=== PATIENT | male | born 1940 | race Caucasian/White ===

== ENCOUNTER 2017-04-09 19:39 | Inpatient (IN) | payer OTHER, MEDICARE ==
[~2017-04-09] VITALS: Ht 162.6 cm; Wt 82.5 kg
[2017-04-09 20:22] VITALS: BP 131/63; PULSE 81; RESP 16; TEMP 99.3; O2SAT 99
[2017-04-09] MEDS ORDERED: SODIUM CHLOR 0.9% 1000 ML INJ 1,000 ML IV SCH (21:11)
[2017-04-09] MEDS ORDERED: PANTOPRAZOLE INJ 80 MG in SODIUM CHLORIDE 0.9% INJ 35 ML IV ONE (21:11)
[2017-04-09] MEDS ORDERED: SODIUM CHLORIDE 0.9% FLUSH 10 ML FLUSH IVF PRN (21:15)
[2017-04-09] MEDS ORDERED: PANT40TA3 PO (21:16)
[2017-04-09] MEDS ORDERED: AMLO10 PO (21:16)
[2017-04-09] MEDS ORDERED: ATOR20TA15 PO (21:16)
[2017-04-09] MEDS ORDERED: HYDR-3516 PO (21:17)
[2017-04-09 21:29] VITALS: O2SAT 93
--- NOTE | 2017-04-09 21:39 | PD ---
HPI . Dizziness Chief Complaint: Dizziness Time Seen by Provider: 21:07 Travel History International Travel<30 days: No Contact w/Intl Traveler<30days: No Traveled to known affect area: No History of Present Illness HPI This patient presents with a chief complaint of dizziness. Onset was about a week ago. Dizziness has been persistent. He is unable to qualify the dizziness. He is also unable to tell me whether or not anything makes it worse or better. He states that the dizziness was preceded by a lower GI bleed. He states that the bleeding stopped and then the dizziness started. He is also complaining with lower extremity edema. He states that he has never had that before. He reports no history of liver disease. [facility] Social History Tobacco Use: No Allergies-Medications (Allergen,Severity, Reaction): Coded Allergies: No Known Allergies (Unverified , 04/09/17) Reported Meds & Prescriptions Reported Meds & Active Scripts Active Reported Hydrocodone-Acetaminophen 5-325 mg Tab 1 Tab PO Q6H PRN Pantoprazole (Pantoprazole Sodium) 40 Mg Tab 40 Mg PO DAILY Norvasc (Amlodipine Besylate) 10 Mg Tab 10 Mg PO DAILY Atorvastatin (Atorvastatin Calcium) 20 Mg Tab 20 Mg PO HS Review of Systems Except as stated in HPI: all other systems reviewed are Neg General / Constitutional: No: Fever, Chills Eyes: No: Blurred Vision HENT: Positive: Lightheadedness Cardiovascular: No: Chest Pain or Discomfort Respiratory: No: Shortness of Breath Gastrointestinal: Positive: Hematochezia, No: Nausea, Vomiting, Diarrhea, Abdominal Pain Genitourinary: No: Urgency, Frequency, Dysuria Neurologic: Positive: Dizziness Physical Exam Narrative GENERAL: Awake and alert and in no acute distress. SKIN: warm/dry. Pale. HEAD: Normocephalic. Atraumatic. EYES: Pupils equal and round. Mild scleral icterus. No injection or drainage. ENT: No nasal bleeding or discharge. Mucous membranes pink and moist. NECK: Trachea midline. Full range of motion without pain.. CARDIOVASCULAR: Regular rate and rhythm. RESPIRATORY: No accessory muscle use. Clear to auscultation. Breath sounds equal bilaterally. GASTROINTESTINAL: Abdomen soft. Nontender. No hepatomegaly. No [place]. No ascites. Bowel sounds present. Nondistended. RECTAL: no mass. brown stool. MUSCULOSKELETAL: No obvious deformities. Nonpitting edema. NEUROLOGICAL: Awake and alert. No obvious cranial nerve deficits. Motor grossly within normal limits. Normal speech. PSYCHIATRIC: Appropriate mood and affect; insight and judgment normal. Data Data Last Documented VS Vital Signs Date Time Temp Pulse Resp B/P (MAP) Pulse Ox O2 Delivery O2 Flow Rate FiO2 04/09/17 21:45 86 20 140/66 (90) 95 Room Air 04/09/17 20:22 99.3 Orders Orders Complete Blood Count With Diff (04/09/17 21:11) Comprehensive Metabolic Panel (04/09/17 21:11) Prothrombin Time / Inr (Pt) (04/09/17 21:11) Act Partial Throm Time (Ptt) (04/09/17 21:11) Type And Screen (04/09/17:11) Ecg Monitoring (04/09/17:11) Iv Access Insert/Monitor (04/09/17 21:11) Oximetry (04/09/17 21:11) Sodium Chlor 0.9% 1000 Ml Inj (Ns 1000 M (04/09/17 21:11) Sodium Chloride 0.9% Flush (Ns Flush) (04/09/17 21:15) Sodium Chloride 0.9... W/Pantoprazole In (04/09/17 21:11) Sodium Chloride 0.9... W/Pantoprazole In (04/09/17 21:11) Red Blood Cells (Rbc) (04/09/17 21:56) Blood Product Administration (04/09/17 21:56) Sodium Chlor 0.9% 250 Ml Inj (Ns 250 Ml (04/09/17 22:00) Admit Order (Ed Use Only) (04/09/17 22:45) Labs Laboratory Tests Test 04/09/17 21:29 White Blood Count 7.5 TH/MM3 Red Blood Count 2.44 MIL/MM3 Hemoglobin 5.6 GM/DL Hematocrit 17.8 % Mean Corpuscular Volume 73.0 FL Mean Corpuscular Hemoglobin 23.0 PG Mean Corpuscular Hemoglobin Concent 31.6 % Red Cell Distribution Width 16.8 % Platelet Count 479 TH/MM3 Mean Platelet Volume 7.5 FL Neutrophils (%) (Auto) 50.6 % Lymphocytes (%) (Auto) 27.8 % Monocytes (%) (Auto) 13.3 % Eosinophils (%) (Auto) 7.6 % Basophils (%) (Auto) 0.7 % Neutrophils # (Auto) 3.7 TH/MM3 Lymphocytes # (Auto) 2.1 TH/MM3 Monocytes # (Auto) 1.0 TH/MM3 Eosinophils # (Auto) 0.6 TH/MM3 Basophils # (Auto) 0.1 TH/MM3 CBC Comment AUTO DIFF Prothrombin Time 11.1 SEC Prothromb Time International Ratio 1.0 RATIO Activated Partial Thromboplast Time 23.5 SEC Blood Urea Nitrogen 19 MG/DL Creatinine 1.20 MG/DL Random Glucose 106 MG/DL Total Protein 7.1 GM/DL Albumin 3.4 GM/DL Calcium Level 7.9 MG/DL Alkaline Phosphatase 68 U/L Aspartate Amino Transf (AST/SGOT) 16 U/L Alanine Aminotransferase (ALT/SGPT) 21 U/L Total Bilirubin 0.3 MG/DL Sodium Level 137 MEQ/L Potassium Level 3.4 MEQ/L Chloride Level 104 MEQ/L Carbon Dioxide Level 25.9 MEQ/L Anion Gap 7 MEQ/L Estimat Glomerular Filtration Rate 59 ML/MIN [facility] Medical Decision Making Medical Screen Exam Complete: Yes Emergency Medical Condition: Yes Differential Diagnosis Differential diagnosis of weakness includes but is not limited to infection, CVA , electrolyte disturbance, renal failure, hypoglycemia, UTI, ACS, acute blood loss Narrative Course This patient presents complaining of weakness and dizziness. He reports a preceding lower GI bleed. On exam, he is pale and his sclera are icteric. Stool is Hemoccult negative. Hgb 5.6. Remains hemodynamically stable. 3 units of PRBCs have been ordered for transfusion with an additional unit on standby. [facility] has been consulted for admission. CBC & BMP Diagram 04/09/17 21:29 Total Protein 7.1, Albumin 3.4, Calcium Level 7.9 L, Alkaline Phosphatase 68, Aspartate Amino Transf (AST/SGOT) 16, Alanine Aminotransferase (ALT/SGPT) 21, Total Bilirubin 0.3 Surprisingly, his bilirubin and other liver function studies are normal. Coags are also normal. Critical Care Narrative Aggregate critical care time was 40 minutes. Time to perform other separately billable procedures was not included in the critical care time. My time did not include minutes spent treating any other patients simultaneously or on activities that did not directly contribute to the patient's treatment. The services I provided to this patient were to treat and/or prevent clinically significant deterioration due to dizziness, anemia I provided critical care services requiring my management, as noted below: Chart data review, documentation time, medication orders and management, vital sign assessments/reviewing monitor data, ordering and reviewing lab tests, ordering and interpreting/reviewing x-rays and diagnostic studies, care of the patient and discussion of the patient with the admitting physicians HemaPrompt Point of Care Internal Pos. & Neg. Controls: Passed Fecal Specimen Occult Blood: Negative Diagnosis Primary Impression: Dizziness Additional Impression: Anemia Qualified Codes: D64.9 - Anemia, unspecified Admitting Information Admitting Physician Requests: Admit Condition: Stable Donna Butler MD Apr 09, 2017 21:39
[2017-04-09 21:45] VITALS: BP 140/66; PULSE 86; RESP 20; O2SAT 95
[2017-04-09 21:47] LABS: AUTOMATED NEUTROPHIL # 3.7 TH/MM3 (1.8-7.7); BASOPHIL # 0.1 TH/MM3 (0-0.2); BASOPHIL % 0.7 % (0.0-2.0); EOSINOPHIL # 0.6 TH/MM3 (0-0.4); EOSINOPHIL % 7.6 % (0.0-4.0); LYMPH % 27.8 % (9.0-44.0); LYMPHOCYTE # 2.1 TH/MM3 (1.0-4.8); MEAN CORPUSCULAR HGB CONC 31.6 % (32.0-36.0); MONO % 13.3 % (0.0-8.0); NEUT % 50.6 % (16.0-70.0); PLATELET COUNT 479 TH/MM3 (150-450); RED BLOOD COUNT 2.44 MIL/MM3 (4.50-5.90); RED CELL DISTRIBUTION WIDTH 16.8 % (11.6-17.2); WHITE BLOOD COUNT 7.5 TH/MM3 (4.0-11.0)
[2017-04-09 21:52] LABS: HEMO FLAGS AUTO DIFF
[2017-04-09 21:55] LABS: HEMATOCRIT 17.8 % (39.0-51.0)
[2017-04-09] MEDS ORDERED: SODIUM CHLOR 0.9% 250 ML INJ 250 ML IV ONE (22:00)
[2017-04-09 22:03] LABS: CHLORIDE 104 MEQ/L (98-107); POTASSIUM 3.4 MEQ/L (3.5-5.1); SODIUM (NA) 137 MEQ/L (136-145)
[2017-04-09 22:07] LABS: ANION GAP 7 MEQ/L (5-15); BICARBONATE 25.9 MEQ/L (21.0-32.0); BLOOD UREA NITROGEN 19 MG/DL (7-18)
[2017-04-09 22:10] LABS: ALT (GPT) 21 U/L (12-78); APTT (PATIENT) 23.5 SEC (24.3-30.1); AST (GOT) 16 U/L (15-37); GLOMERULAR FILTRATION RATE 59 ML/MIN (>89); PROTHROMBIN TIME - PATIENT 11.1 SEC (9.8-11.6)
[2017-04-09] MEDS: PANTOPRAZOLE INJ 80 MG in SODIUM CHLORIDE 0.9% INJ 100 ML IV SCH (22:10)
[2017-04-09 22:12] LABS: TOTAL BILIRUBIN ADULT 0.3 MG/DL (0.2-1.0)
[2017-04-09 22:13] LABS: ALKALINE PHOSPHATASE 68 U/L (45-117)
[2017-04-09] MEDS ORDERED: SODIUM CHLORIDE 0.9% FLUSH 10 ML FLUSH IV FLUSH PRN (22:45)
[2017-04-09] MEDS ORDERED: NALOXONE HCL 0.4 MG/ML AMP IV PUSH PRN (22:45)
[2017-04-09 22:54] LABS: KERATOCYTES 1+ (NORMAL); OVALOCYTES 1+ (NORMAL)
[2017-04-09 22:55] LABS: PLATELET ESTIMATE SMEAR HIGH (NORMAL); PLATELET MORPHOLOGY NORMAL (NORMAL); SCAN/DIFF AUTO DIFF CONFIRMED
[2017-04-09 23:27] VITALS: BP 131/65; PULSE 88; RESP 20; O2SAT 95
[2017-04-10] VITALS (19 sets, daily range): BP systolic 127–154; BP diastolic 70–85; PULSE 84–99; RESP 18–27; TEMP 97.1–102.1; O2SAT 84–94
[2017-04-10] MEDS: SODIUM CHLORIDE 0.9% FLUSH 10 ML FLUSH IV FLUSH SCH ×2 (08:46→21:12)
[2017-04-10] MEDS ORDERED: DIATRIZOATE MEGLUM/DIATRIZOATE SOD 9 ML CUP PO ONE (09:00)
[2017-04-10] MEDS: PANTOPRAZOLE INJ 80 MG in SODIUM CHLORIDE 0.9% INJ 100 ML IV SCH ×2 (09:19→21:12)
[2017-04-10 09:26] LABS: AUTOMATED NEUTROPHIL # 6.3 TH/MM3 (1.8-7.7); BASOPHIL % 0.5 % (0.0-2.0); EOSINOPHIL # 0.1 TH/MM3 (0-0.4); EOSINOPHIL % 1.1 % (0.0-4.0); HEMATOCRIT 22.8 % (39.0-51.0); LYMPH % 10.8 % (9.0-44.0); LYMPHOCYTE # 0.8 TH/MM3 (1.0-4.8); MEAN CELL VOLUME 76.3 FL (80.0-100.0); MEAN CORPUSCULAR HEMOGLOBIN 24.7 PG (27.0-34.0); MEAN CORPUSCULAR HGB CONC 32.4 % (32.0-36.0); MONO % 8.1 % (0.0-8.0); NEUT % 79.5 % (16.0-70.0); PLATELET COUNT 426 TH/MM3 (150-450); RED BLOOD COUNT 2.98 MIL/MM3 (4.50-5.90); RED CELL DISTRIBUTION WIDTH 17.7 % (11.6-17.2); WHITE BLOOD COUNT 7.8 TH/MM3 (4.0-11.0)
[2017-04-10 09:29] LABS: HEMO FLAGS AUTO DIFF
[2017-04-10 09:56] LABS: CHLORIDE 106 MEQ/L (98-107); POTASSIUM 3.3 MEQ/L (3.5-5.1); SODIUM (NA) 139 MEQ/L (136-145)
[2017-04-10 09:58] LABS: ANION GAP 10 MEQ/L (5-15)
[2017-04-10 10:01] LABS: GLOMERULAR FILTRATION RATE 65 ML/MIN (>89)
[2017-04-10 10:03] LABS: TOTAL BILIRUBIN ADULT 0.8 MG/DL (0.2-1.0)
[2017-04-10 10:04] LABS: ALKALINE PHOSPHATASE 73 U/L (45-117)
[2017-04-10 10:08] LABS: ALT (GPT) 18 U/L (12-78)
[2017-04-10 10:11] LABS: AST (GOT) 14 U/L (15-37); BLOOD UREA NITROGEN 17 MG/DL (7-18)
[2017-04-10] MEDS ORDERED: FUROSEMIDE 20 MG/2 ML VIAL IV PUSH ONE (10:15)
[2017-04-10 10:46] LABS: KERATOCYTES 1+ (NORMAL); OVALOCYTES 1+ (NORMAL); SCAN/DIFF AUTO DIFF CONFIRMED; TARGET CELLS 2+ (NORMAL)
[2017-04-10 11:06] LABS: RETIC % 2.9 % (0.4-3.0)
[2017-04-10 11:11] LABS: REVIEW FLAG FINAL
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
[2017-04-10 11:47] LABS: FERRITIN 5 NG/ML (26-388); LDH SERUM 219 U/L (87-241); TRANSFERRIN IRON PROFILE 314 MG/DL (200-360)
[2017-04-10] MEDS ORDERED: PROPOFOL 200 MG/20 ML AMP IV ONE (14:51)
--- NOTE | 2017-04-10 14:57 | PD.PROCEDR ---
GI Procedure PROCEDURE PERFORMED EGD with biopsy INDICATION FOR PROCEDURE Severe anemia PROCEDURE: The procedure, risks and benefits were discussed with Mr. Vincent and informed consent was obtained. Anesthesia sedated him with Diprivan. He was placed in the left lateral decubitus position. EGD: The Pentax videoscope was introduced through the oropharynx and advanced to the second portion of the duodenum under direct visualization. Retroflexion was performed in the stomach biopsy from the antrum FINDINGS: Fl mild gastritis does not explain patient anemia Normal otherwise ESTIMATED BLOOD LOSS: None SPECIMENS REMOVED: Antrum COMPLICATIONS: None IMPRESSION: Minimal gastritis otherwise normal PLAN: Packed RBC as needed Colonoscopy in the morning Grace Jang MD Apr 10, 2017 14:57
[2017-04-10] MEDS ORDERED: DO NOT ADM ANY ANTICOAGULANT DRUGS PRN (15:00)
[2017-04-10] MEDS ORDERED: PEG (High)/E-LYTE SOLN 4000 ML BTL PO ONE (15:30)
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
--- NOTE | 2017-04-10 20:01 | RADRPT ---
EXAM DATE/TIME: 04/10/2017 19:35 CORRECTION Corrected on: April 10, 2017; [facility] COMPARISON: No previous studies available for comparison. INDICATIONS : Abdominal pain. ORAL CONTRAST: Prescribed oral contrast ingested. RADIATION DOSE: 22.03 CTDIvol (mGy) MEDICAL HISTORY : Hypertension. Cardiovascular disease SURGICAL HISTORY : Appendectomy. ENCOUNTER: Initial ACUITY: 1 day PAIN SCALE: 2/10 LOCATION: Abdomen. TECHNIQUE: Volumetric scanning of the abdomen and pelvis was performed. Using automated exposure control and ad justment of the mA and/or kV according to patient size, radiation dose was kept as low as reasonably achievable to obtain optimal diagnostic quality images. DICOM format image data is available electro nically for review and comparison. The lack of IV contrast limits the diagnosis for certain organ pa thology. FINDINGS: LOWER LUNGS: Bilateral small pleural effusions with some infiltrates in both lung bases. LIVER: Homogeneous density without lesion. There is no dilation of the biliary tree. No calcified gallston es. SPLEEN: Normal size without lesion. PANCREAS: Within normal limits. KIDNEYS: Normal in size and shape. There is no mass, stone, or hydronephrosis. ADRENAL GLANDS: Within normal limits. VASCULAR: There is no aortic aneurysm. BOWEL/MESENTERY: The stomach, small bowel, and colon demonstrate no acute abnormality. There is no free intraperitone al air or fluid. There is diverticulosis of the descending and sigmoid colon without inflammatory shadi nges. The appendix is unremarkable. No inflammatory changes. ABDOMINAL WALL: Within normal limits. RETROPERITONEUM: There is no lymphadenopathy. BLADDER: No wall thickening or mass. REPRODUCTIVE: Within normal limits. INGUINAL: There is no lymphadenopathy or hernia. MUSCULOSKELETAL: Within normal limits for patient age. CONCLUSION: 1. Bilateral pleural effusions with bibasilar infiltrates. 2. Diverticulosis of the descending and sigmoid colon without inflammatory changes. 3. No calcified renal stones or hydronephrosis. Billy Nguyen MD on April 10, 2017 at 19:58 Board Certified Radiologist. This report was verified electronically. Billy Nguyen MD on April 10, 2017 at 20:05 Board Certified Radiologist. This report was verified electronically.
[2017-04-10] MEDS: ACETAMINOPHEN 325 MG TAB PO PRN (23:00)
[2017-04-11] VITALS (10 sets, daily range): BP systolic 135–166; BP diastolic 62–90; PULSE 84–119; RESP 18–24; TEMP 97.8–102.1; O2SAT 88–98
[2017-04-11] MEDS: ACETAMINOPHEN 325 MG TAB PO PRN ×2 (00:43→20:54)
[2017-04-11] MEDS ORDERED: METOPROLOL TARTRATE 25 MG TAB PO PRN (03:15)
[2017-04-11] MEDS ORDERED: INSULIN HUMAN REGULAR 1,000 UNITS/10 ML VIAL SQ PRN (03:15)
[2017-04-11] MEDS ORDERED: LACTATED RINGER'S 1000 ML IV PRN (03:15)
[2017-04-11] MEDS ORDERED: CHLORHEXIDINE GLUCONATE 2 % 1 PACK (2 CLOTHS) TOPICAL PRN (03:15)
[2017-04-11] MEDS ORDERED: POVIDONE IODINE 5% (ANTISEPSIS KIT) 4 APPLICATIONS EACH NARE PRN (03:15)
[2017-04-11] MEDS: PANTOPRAZOLE INJ 80 MG in SODIUM CHLORIDE 0.9% INJ 100 ML IV SCH ×2 (05:41→15:00)
[2017-04-11 06:16] LABS: AUTOMATED NEUTROPHIL # 6.5 TH/MM3 (1.8-7.7); BASOPHIL % 0.5 % (0.0-2.0); EOSINOPHIL # 0.1 TH/MM3 (0-0.4); EOSINOPHIL % 0.9 % (0.0-4.0); LYMPH % 20.3 % (9.0-44.0); LYMPHOCYTE # 1.9 TH/MM3 (1.0-4.8); MEAN CELL VOLUME 75.6 FL (80.0-100.0); MEAN CORPUSCULAR HEMOGLOBIN 24.2 PG (27.0-34.0); MEAN CORPUSCULAR HGB CONC 32.1 % (32.0-36.0); MONO % 8.3 % (0.0-8.0); PLATELET COUNT 444 TH/MM3 (150-450); RED BLOOD COUNT 3.57 MIL/MM3 (4.50-5.90); RED CELL DISTRIBUTION WIDTH 18.5 % (11.6-17.2); WHITE BLOOD COUNT 9.3 TH/MM3 (4.0-11.0)
[2017-04-11 06:21] LABS: HEMO FLAGS AUTO DIFF
[2017-04-11 07:11] LABS: KERATOCYTES 1+ (NORMAL); OVALOCYTES 1+ (NORMAL); TARGET CELLS 1+ (NORMAL)
[2017-04-11 07:12] LABS: SCAN/DIFF AUTO DIFF CONFIRMED
[2017-04-11] MEDS ORDERED: PROPOFOL 200 MG/20 ML AMP IV ONE ×2 (07:20→07:57)
--- NOTE | 2017-04-11 07:36 | GIPROC ---
[facility] [address] [place] [address], [id number] COLONOSCOPY PROCEDURE REPORT EXAM DATE: 04/11/2017 PATIENT NAME: Jerry Vincent MR #: [id number] BIRTHDATE: 1940 ENDOSCOPIST: Loly Krueger MD ORDER #: [id number] BATTERY TESTER: Juan Davis and Mey Gibson STATUS: inpatient INDICATIONS: The patient is a 76 yr old male here for a colonoscopy due to ANEMIA , GI BLEEDING PROCEDURE PERFORMED: Colonoscopy with biopsy MEDICATIONS: None and Per Anesthesia. PREP QUALITY: good PREP TYPE:Other: ESTIMATED BLOOD LOSS: None CONSENT: The patient understands the risks and benefits of the procedure and understands that these risks include, but are not limited to: sedation, allergic reaction, infection, perforation and/or bleeding. Alternative means of evaluation and treatment include, among others: physical exam, x-rays, and/or surgical intervention. The patient elects to proceed with this endoscopic procedure. medical equipment was checked for proper function. Hand hygiene and appropriate measures for infection prevention was taken. After the risks, benefits and alternatives of the procedure were thoroughly explained, Informed consent was verified, confirmed and timeout was successfully executed by the treatment team. A digital exam revealed hemorrhoids The Pentax EC-[id number] endoscope was introduced through the anus and advanced to the cecum, which was identified by both the appendix and ileocecal valve. The instrument was then slowly withdrawn as the colon was fully examined. COLON FINDINGS: Diverticulosis sigmoid,descending intrnal hemorrhoids proctitis rectum-biopsy. Retroflexed views revealed internal hemorrhoids and Retroflexed views revealed medium internal hemorrhoids The scope was then completely withdrawn from the patient and the procedure terminated. PROCEDURE WITHDRAWAL TIME:6minutes ADVERSE EVENTS: There were no complications. IMPRESSIONS: 1. Diverticulosis sigmoid,descending intrnal hemorrhoids proctitis rectum-biopsy 2. Retroflexed views revealed internal hemorrhoids 3. Retroflexed views revealed medium internal hemorrhoids 4. Revealed hemorrhoids RECOMMENDATIONS: 1. Await biopsy results. Biopsy results will not be ready for 7-10 days. If you don't hear from us in two weeks, call our office for results. 2. Benefiber 2 tsp daily 3. High fiber diet 4. Avoid NSAIDS and Aspirin 5. Yearly rectal exams 6. Probiotics from any [employer] or health food store 7. Resume diet capsule endoscopy op ct abdomen/pelvis if not done yet if stable hb ok to dc home from [facility] in 2 weeks RECALL: Return 10 years Colonoscopy Loly Krueger MD eSigned: Loly Krueger MD 04/11/2017 7:36 AM cc: PATIENT NAME: Jerry Vincent MR#: [id number]
[2017-04-11] MEDS ORDERED: SUCCINYLCHOLINE CHLORIDE 200 MG/10 ML VIAL IV ONE (07:57)
[2017-04-11] MEDS: SODIUM CHLORIDE 0.9% FLUSH 10 ML FLUSH IV FLUSH SCH ×2 (08:58→20:58)
[2017-04-11] MEDS: POLYSACCHARIDE IRON COMPLEX 150 MG CAP PO SCH ×2 (10:41→20:54)
--- NOTE | 2017-04-11 12:11 | EKG ---
Date Performed: 04/10/2017 Time Performed: 20:49:02 PTAGE: 76 years EKG: Sinus rhythm NORMAL ECG NO PREVIOUS TRACING DOCTOR: Evelin Paulino Interpretating Date/Time 04/11/2017 12:09:20
[2017-04-11] MEDS ORDERED: RESP: ALBUTEROL 2.5 MG/IPRATROPIUM 0.5 MG NEB (SCH) NEB ONE (12:30)
--- NOTE | 2017-04-11 14:08 | RADRPT ---
EXAM DATE/TIME: 04/11/2017 12:30 [facility] COMPARISON: No previous studies available for comparison. INDICATIONS : Short of breath. MEDICAL HISTORY : Hypertension. Cardiovascular disease SURGICAL HISTORY : Appendectomy. ENCOUNTER: Subsequent ACUITY: 1 day PAIN SCORE: 0/10 LOCATION: Bilateral chest FINDINGS: Interstitial vascular prominence is identified throughout both lung vazquez. Fluid is noted in the int erlobar fissures. There are no consolidating infiltrates. Small bilateral effusions are identified. Heart is normal in size. CONCLUSION: 1. Interstitial vascular prominence and small bilateral effusions characteristic of pulmonary congest ion. 2. Underlying distal lung disease may be present as well. 3. No evidence of consolidating airspace disease. Chris Brewster MD on April 11, 2017 at 14:02 Board Certified Radiologist. This report was verified electronically.
[2017-04-11] MEDS ORDERED: POTASSIUM CHLORIDE 10 MEQ CONTROLLED RELEASE TAB PO ONE (15:30)
[2017-04-11] MEDS: METOLAZONE 5 MG TAB PO SCH (15:43)
[2017-04-11] MEDS: FUROSEMIDE 40 MG/4 ML VIAL IV PUSH SCH (15:43)
--- NOTE | 2017-04-11 16:56 | HHI.PR ---
Subjective Remarks Discussed with GI, stable for discharge from GI standpoint, patient has some gastritis and diverticulosis. Noted the patient to have been requiring oxygen, did desaturate in front of me to about 87% on room air, and failed home oxygen walk test as well. Patient himself is very eager to go home, says he feels good , no further bloody bowel movements or any other issues, he implies that he has chronic dyspnea that he just simply tolerates. Objective Vital Signs Date Time Temp Pulse Resp B/P (MAP) Pulse Ox O2 Delivery O2 Flow Rate FiO2 04/11/17 16:00 99.4 100 22 135/62 (86) 88 04/11/17 12:21 93 Nasal Cannula 2.00 04/11/17 12:16 2.00 04/11/17 12:00 97.8 86 18 139/80 (99) 95 04/11/17 09:36 Nasal Cannula 6.00 04/11/17 08:00 99.5 86 24 166/90 (115) 98 04/11/17 07:59 99.8 84 16 134/83 (100) 97 04/11/17 07:44 99.8 75 16 121/76 (91) 98 04/11/17 06:50 98.6 86 22 138/78 (98) 92 04/11/17 04:00 98.5 84 24 148/77 (100) 97 04/11/17 00:00 101.4 102 24 140/83 (102) 94 04/10/17 22:00 102.1 04/10/17 20:30 Nasal Cannula 6.00 Humidified 04/10/17 20:25 92 Nasal Cannula 4.00 04/10/17 20:00 101.3 99 27 148/78 (101) 94 I/O 04/10/17 04/10/17 04/10/17 04/11/17 04/11/17 04/11/17 07:00 15:00 23:00 07:00 15:00 23:00 Intake Total 670 ml 1560 ml 84 ml 85.2 ml 100 ml Output Total 950 ml 400 ml 925 ml Balance -280 ml 1560 ml -316 ml -839.8 ml 100 ml Intake Oral 0 ml 0 ml IV Total 250 ml 84 ml 85.2 ml 100 ml Packed Cells 400 ml 800 ml Blood Product IV Normal Saline Flush 20 ml 660 ml Other 100 ml Output Urine Total 950 ml 400 ml 925 ml # Voids 5 3 1 1 # Bowel Movements 1 3 2 Result Diagram: 04/11/1751404/11/17514 Objective Remarks Minimally labored breathing Ambulates well Breath sounds show bibasilar faint crackles with good air movement otherwise Abdomen soft, nontender, nondistended A/P Assessment and Plan Anemia, symptomatic with weakness, dizziness, shortness of breath stable h/h today, mild gastritis diverticulosis w/ hemorrhoids per GI procedures - . starting po protonix. avoiding NSAIDs. hypoxia - NEW problem - obtain chest x-ray which I independently reviewed and shows diffuse pulmonary edema. Discussed with patient, will start Lasix, obtain echocardiogram as well as BNP. Hypertension, hyperlipidemia Continue home medications DVT prevention Sequential compression devices, avoid chemical prophylaxis secondary to somatic anemia, history GI bleed Fever last night was not reported in nursing sign out this AM apparently. RN reported via thermometer of elevated temp of > 101 noted earlier this afternoon , however, rechecked with a diff thermometer within 5m in and temp was 99. Pt not having any s/s of infection. Will monitor w/o abx for now, temp checks q2hrs. Reza Bruner MD Apr 11, 2017 16:56
[2017-04-11] MEDS: LEVOFLOXACIN 750 MG PREMIX INJ 150 ML IV SCH (20:58)
[2017-04-12] VITALS (12 sets, daily range): BP systolic 122–150; BP diastolic 66–81; PULSE 80–92; RESP 16–24; TEMP 98.5–101.6; O2SAT 90–96
[2017-04-12 03:02] LABS: BLOOD, URINE TRACE (NEG); GLUCOSE,URINE NEG (NEG); KETONE, URINE NEG (NEG); NITRITE,URINE NEG (NEG)
[2017-04-12 03:07] LABS: RBC, URINE 0-2 /hpf (0-3); URINE COLOR STRAW (YELLW/STRAW); WBC, URINE 0-2 /hpf (0-5)
[2017-04-12 03:08] LABS: COMMENT (UR) CULT NOT INDICATED; CULTURE IF INDICATED CULT NOT INDICATED; SQUAMOUS EPITHELIAL CELL URINE 0-5 /hpf (0-5)
[2017-04-12 07:10] LABS: POTASSIUM 2.5 MEQ/L (3.5-5.1)
[2017-04-12 07:11] LABS: BICARBONATE 28.4 MEQ/L (21.0-32.0)
[2017-04-12] MEDS: METOLAZONE 5 MG TAB PO SCH (08:46)
[2017-04-12] MEDS: POLYSACCHARIDE IRON COMPLEX 150 MG CAP PO SCH ×2 (08:46→21:17)
[2017-04-12] MEDS: POTASSIUM CHLOR 20 MEQ PREMIX 100 ML IV SCH ×2 (08:46→16:30)
[2017-04-12] MEDS: POTASSIUM CHLORIDE 10 MEQ CONTROLLED RELEASE TAB PO SCH (08:47)
[2017-04-12] MEDS: FUROSEMIDE 40 MG/4 ML VIAL IV PUSH SCH (08:49)
[2017-04-12] MEDS: SODIUM CHLORIDE 0.9% FLUSH 10 ML FLUSH IV FLUSH SCH ×2 (08:50→21:17)
--- NOTE | 2017-04-12 11:34 | HHI.PR ---
Subjective Remarks Nursing confirms patient did indeed have true fevers last night, blood cultures were obtained and Levaquin was started. Patient has some gastritis and diverticulosis on EGD and colonoscopy. When asked the patient had any outside travel, he says no, denies any history of tuberculosis or working the or living in close quarters with anyone or any exposure to anyone with tuberculosis. Objective Vital Signs Date Time Temp Pulse Resp B/P (MAP) Pulse Ox O2 Delivery O2 Flow Rate FiO2 04/12/17 09:00 100.6 90 16 122/75 (91) 90 04/12/17 05:57 100.8 04/12/17 04:00 100.5 92 24 132/81 (98) 95 04/12/17 04:00 100.0 04/12/17 02:00 101.6 04/12/17 00:00 100.2 81 24 124/75 (91) 95 04/11/17 22:00 99.8 04/11/17 20:30 93 Nasal Cannula 2.00 04/11/17 20:00 Nasal Cannula 2.00 04/11/17 20:00 119 04/11/17 20:00 102.1 102 18 141/76 (97) 92 04/11/17 16:00 99.4 100 22 135/62 (86) 88 04/11/17 12:21 93 Nasal Cannula 2.00 04/11/17 12:16 2.00 04/11/17 12:00 97.8 86 18 139/80 (99) 95 I/O 04/11/17 04/11/17 04/11/17 04/12/17 04/12/17 04/12/17 07:00 15:00 23:00 07:00 15:00 23:00 Intake Total 85.2 ml 100 ml 730 ml 630 ml Output Total 925 ml 1900 ml 1550 ml 450 ml Balance -839.8 ml 100 ml -1170 ml -920 ml -450 ml Intake Oral 0 ml 580 ml 480 ml IV Total 85.2 ml 100 ml 150 ml 150 ml Output Urine Total 925 ml 1900 ml 1550 ml 450 ml # Voids 1 3 1 # Bowel Movements 2 0 0 Result Diagram: 04/11/1715 04/12/17 0510 Objective Remarks Minimally labored breathing Ambulates well Breath sounds show bibasilar faint crackles with good air movement otherwise Abdomen soft, nontender, nondistended A/P Assessment and Plan hypoxia - 2/2 pulmonary edema - clinically improving, continue diuresis. awaiting echo report. Fevers of unknown origin - new problem - blood cultures obtained last night, continue Levaquin, has been afebrile since. Patient denies any signs or symptoms of infection that would suggest a particular etiology. Anemia, symptomatic with weakness, dizziness, shortness of breath stable h/h today, mild gastritis diverticulosis w/ hemorrhoids per GI procedures - . starting po protonix. avoiding NSAIDs. Hypertension, hyperlipidemia Continue home medications DVT prevention Sequential compression devices, avoid chemical prophylaxis secondary to somatic anemia, history GI bleed Reza Bruner MD Apr 12, 2017 11:34
[2017-04-12] MEDS ORDERED: POTASSIUM CHLOR 20 MEQ PREMIX 100 ML IV PRN ×2 (15:00→15:45)
--- NOTE | 2017-04-12 19:53 | ECHRPT ---
Indication: sob CONCLUSIONS The left ventricular systolic function is normal with an estimated ejection fraction in the range of 55-60%. Doppler parameters are consistent with impaired left ventricular relaxtion (grade 1 diastolic dysfun ction). Mild mitral valve regurgitation. Mild aortic valve regurgitation. There is mild tricuspid valve regurgitation. BP: / HR: Rhythm: MEASUREMENTS (Male / Female) Normal Values Technical Quality:Fair 2D ECHO LV Diastolic Diameter PLAX 4.5 cm 4.2 - 5.9 / 3.9 - 5.3 cm LV Systolic Diameter PLAX 3.4 cm IVS Diastolic Thickness 1.7 cm 0.6 - 1.0 / 0.6 - 0.9 cm LVPW Diastolic Thickness 1.3 cm 0.6 - 1.0 / 0.6 - 0.9 cm LV Relative Wall Thickness 0.7 RV Internal Dim ED PLAX 3.3 cm LVOT Diameter 2.2 cm M-MODE Aortic Root Diameter MM 4.1 cm LA Systolic Diameter MM 3.3 cm LA Ao Ratio MM 0.8 AV Cusp Separation MM 1.5 cm DOPPLER AV Peak Velocity 223.0 cm/s AV Peak Gradient 19.9 mmHg AV Mean Gradient 9.0 mmHg AV Velocity Time Integral 37.4 cm LVOT Peak Velocity 114.0 cm/s LVOT Peak Gradient 5.2 mmHg LVOT Velocity Time Integral 23.0 cm AV Area Cont Eq vti 2.3 cm AV Area Cont Eq pk 1.9 cm Mitral E Point Velocity 78.0 cm/s Mitral A Point Velocity 103.0 cm/s Mitral E to A Ratio 0.8 LV E' Lateral Velocity 8.0 cm/s Mitral E to LV E' Lateral Ratio 9.8 LV E' Septal Velocity 7.3 cm/s Mitral E to LV E' Septal Ratio 10.7 TR Peak Velocity 280.0 cm/s TR Peak Gradient 31.4 mmHg Right Atrial Pressure 10.0 mmHg Pulmonary Artery Systolic Pressu 41.4 mmHg Right Ventricular Systolic Press 41.4 mmHg FINDINGS LEFT VENTRICLE The left ventricular systolic function is normal with an estimated ejection fraction in the range of 55-60%. Normal left ventricular size. No regional wall motion abnormalities are present. Doppler parameters are consistent with impaired left ventricular relaxtion (grade 1 diastolic dysfun ction). RIGHT VENTRICLE Normal right ventricular size and systolic function. LEFT ATRIUM The left atrial size is normal. RIGHT ATRIUM The right atrial size is normal. ATRIAL SEPTUM Normal atrial septal thickness. AORTA The aortic root and proximal ascending aorta are normal in size on limited imaging. MITRAL VALVE Structurally normal mitral valve. Mild mitral valve regurgitation. No mitral valve stenosis. AORTIC VALVE Cannot rule out a bicuspid aortic valve or trileaflet valve with partially fused commissure. Mild aortic valve regurgitation. No aortic valve stenosis. TRICUSPID VALVE Structurally normal tricuspid valve. There is mild tricuspid valve regurgitation. The estimated pulmonary arterial pressure is 41.4 mmHg. PULMONARY VALVE No pulmonary valve regurgitation or stenosis. VESSELS The inferior vena cava is normal in size. PERICARDIUM No pericardial effusion. Shane Howe DO (Electronically Signed) Final Date:12 April 2017 19:52
[2017-04-12] MEDS: ACETAMINOPHEN 325 MG TAB PO PRN (21:17)
[2017-04-12] MEDS: LEVOFLOXACIN 750 MG PREMIX INJ 150 ML IV SCH (21:17)
[2017-04-13] VITALS (11 sets, daily range): BP systolic 109–131; BP diastolic 57–83; PULSE 83–94; RESP 14–22; TEMP 98.8–101.5; O2SAT 93–98
[2017-04-13 06:48] LABS: AUTOMATED NEUTROPHIL # 6.8 TH/MM3 (1.8-7.7); BASOPHIL % 0.4 % (0.0-2.0); EOSINOPHIL # 0.6 TH/MM3 (0-0.4); EOSINOPHIL % 6.7 % (0.0-4.0); HEMATOCRIT 31.1 % (39.0-51.0); LYMPH % 12.3 % (9.0-44.0); LYMPHOCYTE # 1.1 TH/MM3 (1.0-4.8); MEAN CELL VOLUME 74.8 FL (80.0-100.0); MEAN CORPUSCULAR HEMOGLOBIN 23.3 PG (27.0-34.0); MEAN CORPUSCULAR HGB CONC 31.1 % (32.0-36.0); NEUT % 71.6 % (16.0-70.0); PLATELET COUNT 510 TH/MM3 (150-450); RED BLOOD COUNT 4.16 MIL/MM3 (4.50-5.90); WHITE BLOOD COUNT 9.3 TH/MM3 (4.0-11.0)
[2017-04-13 07:02] LABS: HEMO FLAGS AUTO DIFF
[2017-04-13 07:19] LABS: BICARBONATE 30.9 MEQ/L (21.0-32.0)
[2017-04-13 07:33] LABS: POTASSIUM 2.7 MEQ/L (3.5-5.1)
[2017-04-13 07:38] LABS: KERATOCYTES OCC (NORMAL); OVALOCYTES 1+ (NORMAL); ROULEAUX PRESENT (NORMAL); TARGET CELLS 1+ (NORMAL)
[2017-04-13 07:39] LABS: SCAN/DIFF AUTO DIFF CONFIRMED
[2017-04-13] MEDS ORDERED: POTASSIUM CHLORIDE 10 MEQ CONTROLLED RELEASE TAB PO ONE (07:45)
[2017-04-13] MEDS ORDERED: POTASSIUM CHLOR 20 MEQ PREMIX 100 ML IV SCH (08:00)
[2017-04-13] MEDS: POLYSACCHARIDE IRON COMPLEX 150 MG CAP PO SCH ×2 (08:56→21:22)
[2017-04-13] MEDS: METOLAZONE 5 MG TAB PO SCH (08:56)
[2017-04-13] MEDS: FUROSEMIDE 40 MG/4 ML VIAL IV PUSH SCH (08:56)
[2017-04-13] MEDS: POTASSIUM CHLORIDE 10 MEQ CONTROLLED RELEASE TAB PO SCH (09:05)
[2017-04-13] MEDS: SODIUM CHLORIDE 0.9% FLUSH 10 ML FLUSH IV FLUSH SCH ×2 (09:06→21:22)
[2017-04-13] MEDS ORDERED: SODIUM CHLOR 0.9% 250 ML INJ 250 ML IV ONE (11:45)
--- NOTE | 2017-04-13 14:22 | HHI.PR ---
Subjective Remarks No acute deterioration since last night per nursing. Chart review shows patient has temperatures maxing out at 100.4 now after his Levaquin was started , prior to that he was over 102 . Patient claims he feels really good and says he feels like "Superman". Denies any subjective fevers or chills. Objective Vital Signs Date Time Temp Pulse Resp B/P (MAP) Pulse Ox O2 Delivery O2 Flow Rate FiO2 04/13/17 12:24 88 04/13/17 12:00 99.5 94 14 130/83 (99) 95 04/13/17 08:00 98.8 86 16 117/71 (86) 97 04/13/17 04:26 99.9 83 16 120/62 (81) 96 04/13/17 04:00 99.9 04/13/17 02:00 99.9 04/13/17 00:25 100.3 87 18 115/57 (76) 95 04/12/17 22:50 Nasal Cannula 2.00 04/12/17 22:24 84 04/12/17 22:09 100.4 86 20 122/66 (84) 93 04/12/17 20:45 Nasal Cannula 2.00 04/12/17 20:00 100.4 04/12/17 16:00 98.5 80 18 138/78 (98) 93 04/12/17 15:28 96 Nasal Cannula 2.00 I/O 04/12/17 04/12/17 04/12/17 04/13/17 04/13/17 04/13/17 07:00 15:00 23:00 07:00 15:00 23:00 Intake Total 630 ml 358 ml 490 ml 100 ml 480 ml Output Total 1550 ml 950 ml 250 ml 600 ml 1 ml Balance -920 ml -592 ml 240 ml -500 ml 479 ml Intake Oral 480 ml 358 ml 240 ml 100 ml 480 ml IV Total 150 ml 250 ml Output Urine Total 1550 ml 950 ml 250 ml 600 ml 1 ml # Voids 1 1 # Bowel Movements 0 1 1 Result Diagram: 04/13/17 0604/13/17600 Objective Remarks Unlabored breathing Breath sounds are good and coarse bilaterally No acute distress, awake alert A/P Assessment and Plan Diastolic dysfunction - suspect possible undiagnosed obstructive sleep apnea, we 'll consider starting MARILIN inhibitor tomorrow after kidney function shows improvement new problem of hypokalemia - 2/2 diuretic use, replacing today, and recheck in AM Acute kidney injury - secondary to diuretic use stopping diuretic use, giving very small normal saline bolus of 2 50 cc, will repeat kidney function in a.m., Fevers of unknown origin - BC's are neg x 48 hrs, improved after starting levaquin. Will order repeat CXR for persistent temps up to 100.4. CBC is stable w/ no leukocytosis. D/w radiology for possible nodule on right upper lobe - they feel that is more bony in origin. Feel there are streaks on left lower lobe suggestive possibly of PNA. Anemia, symptomatic with weakness, dizziness, shortness of breath stable h/h today, mild gastritis diverticulosis w/ hemorrhoids per GI procedures - po protonix. avoiding NSAIDs. Hypertension, hyperlipidemia Continue home medications DVT prevention Sequential compression devices, avoid chemical prophylaxis secondary to somatic anemia, history GI bleed Reza Bruner MD Apr 13, 2017 14:22
--- NOTE | 2017-04-13 16:09 | RADRPT ---
EXAM DATE/TIME: 04/13/2017 14:59 [facility] COMPARISON: CHEST PA & LAT, April 11, 2017, 12:30. INDICATIONS : Fever. Cough. MEDICAL HISTORY : None. SURGICAL HISTORY : None. ENCOUNTER: Subsequent ACUITY: 2 days PAIN SCORE: 6/10 LOCATION: Bilateral chest FINDINGS: The cardiac silhouette is enlarged in transverse diameter. There is prominence of the aortic knob is with calcification characteristic of atherosclerotic vascular disease. There is prominence of the maurilio tral pulmonary vasculature with indistinct vascular margins compatible with vascular congestion but n o evidence of overt failure. The findings are improved when compared with the prior exam. Small bilat eral pleural effusions are identified. CONCLUSION: 1. Cardiomegaly and findings of vascular congestion without overt failure. The findings are improved when compared with the prior exam. Jaspreet King MD on April 13, 2017 at 16:07 Board Certified Radiologist. This report was verified electronically.
[2017-04-14] VITALS (9 sets, daily range): BP systolic 120–142; BP diastolic 72–80; PULSE 79–95; RESP 16–20; TEMP 98.2–100.4; O2SAT 95–98
[2017-04-14 07:12] LABS: AUTOMATED NEUTROPHIL # 5.6 TH/MM3 (1.8-7.7); BASOPHIL # 0.1 TH/MM3 (0-0.2); BASOPHIL % 0.8 % (0.0-2.0); EOSINOPHIL # 0.5 TH/MM3 (0-0.4); EOSINOPHIL % 5.9 % (0.0-4.0); HEMATOCRIT 29.4 % (39.0-51.0); LYMPH % 12.7 % (9.0-44.0); LYMPHOCYTE # 1.1 TH/MM3 (1.0-4.8); MEAN CELL VOLUME 74.6 FL (80.0-100.0); MEAN CORPUSCULAR HEMOGLOBIN 24.2 PG (27.0-34.0); MEAN CORPUSCULAR HGB CONC 32.4 % (32.0-36.0); MONO % 11.7 % (0.0-8.0); NEUT % 68.9 % (16.0-70.0); PLATELET COUNT 512 TH/MM3 (150-450); RED BLOOD COUNT 3.94 MIL/MM3 (4.50-5.90); RED CELL DISTRIBUTION WIDTH 19.1 % (11.6-17.2); WHITE BLOOD COUNT 8.3 TH/MM3 (4.0-11.0)
[2017-04-14 07:13] LABS: HEMO FLAGS AUTO DIFF
[2017-04-14 07:50] LABS: MAGNESIUM 2.5 MG/DL (1.5-2.5)
[2017-04-14 07:52] LABS: POTASSIUM 2.8 MEQ/L (3.5-5.1)
[2017-04-14 08:19] LABS: KERATOCYTES OCC (NORMAL); OVALOCYTES 1+ (NORMAL); ROULEAUX PRESENT (NORMAL); SCAN/DIFF AUTO DIFF CONFIRMED; TARGET CELLS 1+ (NORMAL)
[2017-04-14] MEDS ORDERED: SODIUM CHLOR 0.9% 250 ML INJ 250 ML IV ONE (08:45)
[2017-04-14] MEDS: POTASSIUM CHLORIDE 10 MEQ CONTROLLED RELEASE TAB PO SCH (08:58)
[2017-04-14] MEDS: METOLAZONE 5 MG TAB PO SCH (08:58)
[2017-04-14] MEDS: SODIUM CHLORIDE 0.9% FLUSH 10 ML FLUSH IV FLUSH SCH ×2 (08:59→20:24)
[2017-04-14] MEDS: POLYSACCHARIDE IRON COMPLEX 150 MG CAP PO SCH ×2 (08:59→20:25)
[2017-04-14] MEDS ORDERED: Vancomycin Consult Pharmacy 1 EA OTHER SCH (09:00)
[2017-04-14] MEDS: POTASSIUM CHLOR 20 MEQ PREMIX 100 ML IV SCH ×3 (09:00→20:25)
[2017-04-14] MEDS ORDERED: VANCOMYCIN 1,000 MG/NS 250 ML IV SCH ×2 (10:00)
[2017-04-14] MEDS ORDERED: IODIXANOL 320 MG/ML 10 ML VIAL (for Rad CT) IVCONTRAST ONE (10:22)
--- NOTE | 2017-04-14 10:30 | RADRPT ---
EXAM DATE/TIME: 04/14/2017 10:11 [facility] COMPARISON: No previous studies available for comparison. INDICATIONS : Cough. fever. IV CONTRAST: 45 cc Omnipaque 350 (iohexol) IV RADIATION DOSE: 14.66 CTDIvol (mGy) MEDICAL HISTORY : Hypertension. SURGICAL HISTORY : Appendectomy. ENCOUNTER: Subsequent ACUITY: 3 days PAIN SCALE: 0/10 LOCATION: chest TECHNIQUE: Volumetric scanning of the chest was performed. Using automated exposure control and adjustment of t he mA and/or kV according to patient size, radiation dose was kept as low as reasonably achievable to obtain optimal diagnostic quality images. DICOM format image data is available electronically for review and comparison. Follow-up recommendations for detected pulmonary nodules are based at a minimum on nodule size and pa tient risk factors according to Fleischner Society Guidelines. FINDINGS: LUNGS: There is scattered interstitial infiltrates throughout the right upper lung suggestive of pneumonia. The right middle lobe and right lower lung grossly clear except for some focal atelectasis in the pos terior right lung base. There is a 4 mm pulmonary nodule in the left lung base. There is mild atelect asis versus scarring in the posterior left lower lung. Otherwise the left lung is clear. PLEURA: Small right effusion. Mild left pleural thickening. MEDIASTINUM: The heart and great vessels demonstrate no acute abnormality. There is no mediastinal or hilar lymph adenopathy. A few mild nonspecific mediastinal lymph nodes are demonstrated. Coronary calcifications. AXILLAE: Within normal limits. No lymphadenopathy. SKELETAL: Within normal limits for patient age. Degenerative changes. CONCLUSION: 1. Scattered interstitial infiltrates in the right upper lung suggestive of pneumonia. 2. Focal bibasilar atelectasis, right greater than left with a small right pleural effusion. 3. 4 mm nonspecific pulmonary nodule left lung base. Recommend a followup noncontrast CT thorax in 6 months. Billy Nguyen MD on April 14, 2017 at 10:25 Board Certified Radiologist. This report was verified electronically.
--- NOTE | 2017-04-14 14:28 | HHI.PR ---
Subjective Remarks No acute deterioration since last night per nursing except patient did have a recurrence of his fever greater than 101. Patient says he feels fine and does not eyes any subjective fevers. Denies any shortness of breath while ambulating. He reports being treated for gonorrhea when he was much younger just once. Reports receiving blood transfusions at least 3 times, with the first one being in the 80s at the earliest. Denies ever being diagnosed with HIV or any viral hepatitis is and denies ever having any sex with any exposed contacts. Denies ever being stuck with unclean needles and denies any and all illicit drug use now and in the past. Objective Vital Signs Date Time Temp Pulse Resp B/P (MAP) Pulse Ox O2 Delivery O2 Flow Rate FiO2 04/14/17 12:00 98.5 80 19 133/79 (97) 96 04/14/17 08:00 99.2 84 18 142/80 (100) 95 04/14/17 07:44 97 21 04/14/17 04:49 99.2 85 20 120/72 (88) 98 04/14/17 00:23 99.5 88 16 120/79 (93) 97 04/13/17 21:00 89 04/13/17 20:19 101.5 92 22 109/75 (86) 97 04/13/17 20:10 94 21 04/13/17 16:00 99.2 92 16 131/68 (89) 93 I/O 04/13/17 04/13/17 04/13/17 04/14/17 04/14/17 04/14/17 06:59 14:59 22:59 06:59 14:59 22:59 Intake Total 100 ml 480 ml 510 ml Output Total 600 ml 1 ml Balance -500 ml 479 ml 510 ml Intake Oral 100 ml 480 ml 480 ml IV Total 30 ml Output Urine Total 600 ml 1 ml # Voids 1 3 1 # Bowel Movements 1 1 Result Diagram: 04/14/1762604/14/17626 Objective Remarks Unlabored breathing Breath sounds are good and coarse bilaterally No acute distress, awake alert IV line in left arm looks ok, no tawny erythema or swelling A/P Assessment and Plan Fevers of unknown origin - initially improved w/ Levaquin but now fever is recurring up to 101.[address] scan was ordered in response to this , radiology read suggests possible infiltrates in right upper lobe as well as an incidental lung nodule on the left lung base measuring 4 mm, I independently reviewed the chest film and see mild hazy groundglass like infiltrates . Clinically the patient has no source of infection on the other hand. We'll order Legionella and pneumococcal urinary antigens. If negative, will discuss with infectious disease. BCx neg x 3 days. Diastolic dysfunction - suspect possible undiagnosed obstructive sleep apnea, we 'll consider starting MARILIN inhibitor or spironolactone tomorrow after kidney function shows improvement hypokalemia - still requiring replacement Acute kidney injury - secondary to diuretic use stopping diuretic use, worsening today - we'll give another small bolus of fluids and repeat tomorrow. If continues to deteriorate we'll then consult nephrology Anemia 2/2 GI bleed which has resolved - post egd and colonoscopy - stable h/h, mild gastritis diverticulosis w/ hemorrhoids per GI procedures - po protonix. avoiding NSAIDs. Hypertension, hyperlipidemia Continue home medications DVT prevention Sequential compression devices, avoid chemical prophylaxis secondary to somatic anemia, history GI bleed Reza Bruner MD Apr 14, 2017 14:28
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
[2017-04-14] MEDS ORDERED: LEVOFLOXACIN 750 MG TAB PO SCH (21:00)
[2017-04-14 22:12] LABS: RHEUMATOID FACTOR TRIGGER LESS THAN 10.0 IU/ML (0.0-14.9)
[2017-04-15] VITALS (7 sets, daily range): BP systolic 102–169; BP diastolic 57–88; PULSE 65–97; RESP 18–20; TEMP 98.2–101.2; O2SAT 96–100
[2017-04-15] MEDS: ACETAMINOPHEN 325 MG TAB PO PRN (03:41)
[2017-04-15] MEDS: POLYSACCHARIDE IRON COMPLEX 150 MG CAP PO SCH ×2 (08:35→21:33)
[2017-04-15] MEDS: POTASSIUM CHLORIDE 10 MEQ CONTROLLED RELEASE TAB PO SCH (08:35)
[2017-04-15] MEDS: SODIUM CHLORIDE 0.9% FLUSH 10 ML FLUSH IV FLUSH SCH ×2 (08:36→21:32)
[2017-04-15 10:41] LABS: POTASSIUM 2.3 MEQ/L (3.5-5.1)
[2017-04-15] MEDS ORDERED: POTASSIUM CHLORIDE 10 MEQ CONTROLLED RELEASE TAB PO ONE (11:00)
[2017-04-15] MEDS: NS + KCL 40 MEQ INJ 1,000 ML IV SCH ×2 (11:06→18:23)
[2017-04-15] MEDS: AZITHROMYCIN INJ 500 MG in SODIUM CHLOR 0.9% 250 ML INJ 250 ML IV SCH (12:33)
--- NOTE | 2017-04-15 12:37 | HHI.PR ---
Subjective Remarks RN denies any setbacks since last night, however, patient did have another fever of 101 last night. Patient denies any signs or symptoms of infection. Denies any subjective fevers or chills. Objective Vital Signs Date Time Temp Pulse Resp B/P (MAP) Pulse Ox O2 Delivery O2 Flow Rate FiO2 04/15/17 08:27 96 21 04/15/17 08:00 99.2 65 18 117/66 (83) 98 04/15/17 07:20 Room Air 04/15/17 04:32 99.9 78 20 104/78 (87) 98 04/15/17 00:15 101.2 78 18 102/57 (72) 98 04/14/17 20:15 100.4 95 18 135/77 (96) 97 04/14/17 20:00 94 04/14/17 20:00 97 Room Air 04/14/17 19:41 98 Nasal Cannula 21 04/14/17 16:00 98.2 79 19 140/77 (98) 95 04/14/17 16:00 Room Air I/O 04/14/17 04/14/17 04/14/17 04/15/17 04/15/17 04/15/17 06:59 14:59 22:59 06:59 14:59 22:59 Intake Total 1050 ml Balance 1050 ml IV Total 1050 ml # Voids 1 2 1 Result Diagram: 04/14/17 0627 04/15/17 0950 Imaging Last Impressions Chest CT 04/14/17 0000 Signed Impressions: Service Date/Time: Friday, April 14, 2017 10:11 - CONCLUSION: 1. Scattered interstitial infiltrates in the right upper lung suggestive of pneumonia. 2. Focal bibasilar atelectasis, right greater than left with a small right pleural effusion. 3. 4 mm nonspecific pulmonary nodule left lung base. Recommend a followup noncontrast CT thorax in 6 months. Billy Nguyen MD Chest X-Ray 04/13/17 0000 Signed Impressions: Service Date/Time: Thursday, April 13, 2017 14:59 - CONCLUSION: 1. Cardiomegaly and findings of vascular congestion without overt failure. The findings are improved when compared with the prior exam. Jaspreet King MD Abdomen/Pelvis CT 04/10/17 0000 Signed Impressions: Service Date/Time: Monday, April 10, 2017 19:35 - CONCLUSION: 1. Bilateral pleural effusions with bibasilar infiltrates. 2. Diverticulosis of the descending and sigmoid colon without inflammatory changes. 3. No calcified renal stones or hydronephrosis. Billy Nguyen MD Objective Remarks Unlabored breathing Breath sounds are good and coarse bilaterally A/P Assessment and Plan hypokalemia - worsening - last dose of diuretic was metolazone given yesterday . We'll start spironolactone of renal function tolerates. Giving additional IV dose today with hefty po dose. will order renal lytes. Fevers of unknown origin - Still persistent - not responding off of abx. CT scan was ordered in response to this , radiology read suggests possible infiltrates in right upper lobe as well as an incidental lung nodule on the left lung base measuring 4 mm, I independently reviewed the chest film and see mild hazy groundglass like infiltrates . Clinically the patient has no source of infection on the other hand. Legionella and pneumococcal urinary are negative . BCx neg x 4 days. GE, rheumatoid factor pending per ID recommendations. SED rate is negative. azithromycin ordered per ID. D/w ID - will observe on azithromycin, if still febrile will order gallium scan. Acute kidney injury - secondary to diuretic use stopping diuretic use (last dose yesterday), plateauing today - we'll give another small bolus of fluids and repeat tomorrow. Diastolic dysfunction - suspect possible undiagnosed obstructive sleep apnea, we 'll consider starting MARILIN inhibitor or spironolactone tomorrow after kidney function shows improvement Anemia 2/2 GI bleed which has resolved - post egd and colonoscopy - stable h/h, mild gastritis diverticulosis w/ hemorrhoids per GI procedures - po protonix. avoiding NSAIDs. Hypertension, hyperlipidemia Continue home medications DVT prevention Sequential compression devices, avoid chemical prophylaxis secondary to somatic anemia, history GI bleed Reza Bruner MD Apr 15, 2017 12:36
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
[2017-04-16] VITALS: BP 119/71; PULSE 78; RESP 20; TEMP 100.6; O2SAT 100
[2017-04-16] MEDS: ACETAMINOPHEN 325 MG TAB PO PRN (00:11)
[2017-04-16] MEDS: NS + KCL 40 MEQ INJ 1,000 ML IV SCH ×2 (02:59→11:00)
[2017-04-16 04:00] VITALS: BP 116/71; PULSE 81; RESP 20; TEMP 98.4; O2SAT 98
[2017-04-16 06:45] LABS: BICARBONATE 28.2 MEQ/L (21.0-32.0); POTASSIUM 3.3 MEQ/L (3.5-5.1)
[2017-04-16 08:00] VITALS: BP 131/72; PULSE 79; RESP 18; TEMP 97.9; O2SAT 94; O2SAT 95
[2017-04-16] MEDS: POLYSACCHARIDE IRON COMPLEX 150 MG CAP PO SCH (08:46)
[2017-04-16] MEDS: SODIUM CHLORIDE 0.9% FLUSH 10 ML FLUSH IV FLUSH SCH (08:46)
[2017-04-16] MEDS: POTASSIUM CHLORIDE 10 MEQ CONTROLLED RELEASE TAB PO SCH (08:46)
[2017-04-16 12:00] VITALS: BP 121/74; PULSE 76; RESP 20; TEMP 98.9; O2SAT 99
[2017-04-16] MEDS ORDERED: SPIR25TA PO (12:04)
[2017-04-16] MEDS ORDERED: POTA-163 PO (12:04)
--- NOTE | 2017-04-16 12:05 | HHI.DCPOC ---
Discharge Care Plan Diagnosis: (1) Diastolic congestive heart failure, NYHA class 1 (2) Diverticulosis of sigmoid colon (3) Gastritis (4) Internal hemorrhoids without complication (5) Fever of undetermined origin (6) Fever due to infection Goals to Promote Your Health * To prevent worsening of your condition and complications * To maintain your health at the optimal level Directions to Meet Your Goals Take your medications as prescribed Follow your dietary instruction Follow activity as directed Keep your appointments as scheduled Take your immunizations and boosters as scheduled If your symptoms worsen call your PCP, if no PCP go to Urgent Care Center or Emergency Room Smoking is Dangerous to Your Health. Avoid second hand smoke Call the 24-hour hour crisis hotline for domestic abuse at Reza Bruner MD Apr 16, 2017 12:05
--- NOTE | 2017-04-16 12:51 | HHI.DS ---
Discharge Summary Admission Date Apr 09, 2017 at 22:47 Discharge Date: Apr 16, 2017 Admitting Diagnosis anemia secondary to GI blood loss (1) Fever due to infection ICD Code: R50.81 - Fever presenting with conditions classified elsewhere; B99.9 - Unspecified infectious disease (2) Diastolic congestive heart failure, NYHA class 1 ICD Code: I50.30 - Unspecified diastolic (congestive) heart failure (3) Fever of undetermined origin ICD Code: R50.9 - Fever, unspecified (4) Diverticulosis of sigmoid colon ICD Code: K57.30 - Diverticulosis of large intestine without perforation or abscess without bleeding (5) Gastritis ICD Code: K29.70 - Gastritis, unspecified, without bleeding (6) Internal hemorrhoids without complication ICD Code: K64.8 - Other hemorrhoids (7) Pulmonary nodule, left ICD Code: R91.1 - Solitary pulmonary nodule Procedures EGD and colonoscopy Brief History - From Admission Written by Joseph Siddiqi, acting as scribe for Dr. Bruner on 04/10/17 at 11:14. 76-year-old male with known history of hypertension, anemia, history GI bleed who presented to the hospital because of dizziness, weakness and fall at home. Patient indicates that he is normal state of health until 3 weeks ago when he started developing bright red blood per rectum. He states that it lasted for approximately 10 days. Patient states that he went to the clinic and they gave him some pills and he improved. He had been doing well until one week ago when he has had increased dizziness, weakness and he fell at home one time. He is had increased shortness of breath over the last 2 days. He usually lives in [place] and goes to the hospital there. However he is visiting his brother. And because of the above symptoms he came to the hospital for evaluation. Patient states that he did have upper and lower endoscopies done approximately 3 years ago which were normal. Patient denies any NSAID use. Patient had workup done which shows significant anemia with hemoglobin 5.6. Hemoccult was negative. Patient was undergoing transfusion when he started developing lower abdominal pain. Nursing staff indicates that he did not want to pursue any further transfusions because he is never experienced this abdominal pain before while receiving transfusion. Workup has been ordered. Awaiting workup and patient now states that he is no longer experiencing any abdominal pain. He is receiving his third unit of blood. CBC/BMP: 04/14/17 0627 04/16/17 0540 Significant Findings Laboratory Tests Test 04/13/17 19:53 04/14/17 06:27 04/14/17 17:55 04/15/17 09:50 Red Blood Count 3.94 MIL/MM3 (4.50-5.90) Hemoglobin 9.5 GM/DL (13.0-17.0) Hematocrit 29.4 % (39.0-51.0) Mean Corpuscular Volume 74.6 FL (80.0-100.0) Mean Corpuscular Hemoglobin 24.2 PG (27.0-34.0) Red Cell Distribution Width 19.1 % (11.6-17.2) Platelet Count 512 TH/MM3 (150-450) Monocytes (%) (Auto) 11.7 % (0.0-8.0) Eosinophils (%) (Auto) 5.9 % (0.0-4.0) Monocytes # (Auto) 1.0 TH/MM3 (0-0.9) Eosinophils # (Auto) 0.5 TH/MM3 (0-0.4) Basophilic Stippling FAINT (NORMAL) Target Cells 1+ (NORMAL) Ovalocytes 1+ (NORMAL) Rouleau PRESENT (NORMAL) Blood Urea Nitrogen 34 MG/DL (7-18) 28 MG/DL (7-18) Creatinine 1.60 MG/DL (0.60-1.30) 1.60 MG/DL (0.60-1.30) Random Glucose 109 MG/DL (74-106) 130 MG/DL (74-106) Sodium Level 132 MEQ/L (136-145) 134 MEQ/L (136-145) Potassium Level 2.8 MEQ/L (3.5-5.1) 2.3 MEQ/L (3.5-5.1) Chloride Level 91 MEQ/L (98-107) 92 MEQ/L (98-107) Estimat Glomerular Filtration Rate 42 ML/MIN (>89) 42 ML/MIN (>89) Calcium Level 8.4 MG/DL (8.5-10.1) Test 04/15/17 18:30 04/16/17 05:40 Blood Urea Nitrogen 26 MG/DL (7-18) Calcium Level 7.9 MG/DL (8.5-10.1) Potassium Level 3.3 MEQ/L (3.5-5.1) Estimat Glomerular Filtration Rate 65 ML/MIN (>89) PE at Discharge Unlabored breathing, no coughing, no dyspnea, lungs are clear bilaterally Awake alert, oriented Hospital Course Patient was admitted, transfused 3 units of packed red blood cells. He underwent EGD which showed mild gastritis as well as colonoscopy which showed sigmoid diverticulosis and internal hemorrhoids - no reports of any active bleeding in any of these findings. His hemodynamic status remained stable after that with no further signs or symptoms of GI bleeding. However the patient did develop hypoxia secondary to pulmonary edema which eventually led to the diagnosis of diastolic congestive heart failure per echocardiogram. He was diuresed successfully and was transitioned to room air. During this time however the patient started developing persistent fevers that would not respond to antibiotics including Levaquin, vancomycin, and azithromycin. He remained clinically asymptomatic with no signs or symptoms of any overt infection; multiple imaging tests and basic serological autoimmune workup were unremarkable for any cause. Infectious disease was consulted and recommended that the patient get a gallium scan. Autoimmune basic workup was also negative. Patient was incidentally diagnosed with a left base pulmonary nodule and he was instructed to follow-up with his PCP as an outpt with repeat imaging. Pt was counseled to f/u in regards to the lung nodule, renal function , and potassium levels; and the gallium scan with outpt ID f/u. Patient has met maximum benefit from hospitalization and is clinically stable for discharge. Pt Condition on Discharge: Stable Discharge Disposition: Discharge Home Discharge Time: > 30 minutes Discharge Instructions DIET: Follow Instructions for: High Fiber Diet Activities you can perform: Weight Bearing as Arron Follow up Referrals: Infectious Disease - 10 Days PCP Follow-up - 10 Days New Orders: NM GALLIUM WHOLE BOD - 2-3 Days New Medications: Potassium Chloride ER (Potassium Chloride ER) 20 Meq Tab 20 MEQ PO BID for Electrolyte Replacement, #60 TAB 0 Refills Spironolactone (Spironolactone) 25 Mg Tab 12.5 MG PO DAILY for heart failure, #15 TAB 0 Refills Continued Medications: Amlodipine (Norvasc) 10 Mg Tab 10 MG PO DAILY for Blood Pressure Management, #30 TAB 0 Refills Atorvastatin (Atorvastatin) 20 Mg Tab 20 MG PO HS for Cholesterol Management, #30 TAB 0 Refills Pantoprazole (Pantoprazole) 40 Mg Tab 40 MG PO DAILY for Reflux, #30 TAB 0 Refills Discontinued Medications: Hydrocodone-Acetaminophen (Hydrocodone-Acetaminophen) 5-325 mg Tab 1 TAB PO Q6H PRN for PAIN, TAB 0 Refills Reza Bruner MD Apr 16, 2017 12:51
[2017-04-16] MEDS: AZITHROMYCIN INJ 500 MG in SODIUM CHLOR 0.9% 250 ML INJ 250 ML IV SCH (13:00)
[2017-04-17] MEDS ORDERED: VANCOMYCIN TROUGH ONE (09:45)
--- NOTE | 2017-04-18 11:07 | PQ ---
Physician Query Response Document PATIENT: REINIER WORLEY : 1940 ADMIT DATE: 04/09/2017 10:47 PM DISCH DATE: 04/16/2017 4:05 PM RESPONDING PROVIDER #: [email or web address] QUERY TEXT: Acuity Specificity DIASTOLIC CONGESTIVE HEART FAILURE is documented in the Medical Record. Please specify the acuity of this condition with terms such as: -- Acute -- Chronic -- Acute and chronic -- Acute on chronic -- Other (please specify in the medical record) Your prompt response is appreciated, please do not hesitate to contact the CDI/Coding Hotline with an y questions, comments and/or concerns you may have at ext. [phone]. The patient's Clinical Indicators include: DISCHARGE SUMMARY: Patient developed hypoxia secondary to pulmonary edema which eventuall let to the diagnoisi of diastolic congestive heart failure per echocardiogram. ORDERS: 04/10 20MG Furosomide IV Push once, 04/10, 40mg Furosomide Daily IV Push, 04/11. CT ABDOMEN 04/10: Bilateral small pleural effusions with infiltrates in both lung bases. CXR 04/11: Small bilateral effusion characteristic of pulmonary congestion. CT THORAX 04/14: Scattered intersitial infiltrates RUL, bibasilar atelectasis with small righ pleural effusion. ED PHYSICAL EXAM: Nonpitting edema Query created by: Nathalie Melendrez on 04/17/2017 2:29 PM RESPONSE TEXT: Pt had suspected acute on chronic diastolic heart failure. Electronically signed by: Reza Bruner 04/18/2017 11:03 AM
== END 2017-04-16 16:05 | disposition home or self-care (01) | DRG 377 ==
LOC: PHED 19:39 → PHEDA 22:47 → PH3B 04-10 00:07
PROVIDERS: ADMIT Hospitalist; ATTEND Hospitalist
PROC: 30233N1 Transfusion of Nonautologous Red Blood Cells into Peripheral Vein, Percutaneous Approach (ICD-10-PCS; 2017-04-10)
PROC: 0DD68ZX Extraction of Stomach, Via Natural or Artificial Opening Endoscopic, Diagnostic (ICD-10-PCS; principal; 2017-04-10 14:45)
PROC: 0DBP8ZX Excision of Rectum, Via Natural or Artificial Opening Endoscopic, Diagnostic (ICD-10-PCS; 2017-04-11)
DX: K92.2 Gastrointestinal hemorrhage, unspecified (principal); I50.33 Acute on chronic diastolic (congestive) heart failure; N17.9 Acute kidney failure, unspecified; D50.0 Iron deficiency anemia secondary to blood loss (chronic); I11.0 Hypertensive heart disease with heart failure; D64.9 Anemia, unspecified; E78.5 Hyperlipidemia, unspecified; R91.1 Solitary pulmonary nodule; K29.50 Unspecified chronic gastritis without bleeding; K57.30 Diverticulosis of large intestine without perforation or abscess without bleeding; K64.8 Other hemorrhoids; R09.02 Hypoxemia; G47.33 Obstructive sleep apnea (adult) (pediatric); E87.6 Hypokalemia; K62.89 Other specified diseases of anus and rectum; R50.9 Fever, unspecified; T50.2X5A Adverse effect of carbonic-anhydrase inhibitors, benzothiadiazides and other diuretics, initial encounter; R29.6 Repeated falls; Z87.891 Personal history of nicotine dependence
CPT/HCPCS: 36430; 71020; 71260; 74176; 76937; 80048; 80053; 81001; 82607; 82728; 82746; 83010; 83540; 83550; 83615; 83690; 83735; 83880; 84133; 84145; 85025; 85044; 85610; 85652; 85730; 86038; 86430; 86850; 86900; 86901; 86920; 87040; 87205; 87449; 87804; 88305; 88312; 93005; 93306; 94620; 94664; 96365; C9113; J0330; J0456; J1940; J1956; J3370; J3480; J7030; J7050; P9016; Q9963; Q9967